=== PATIENT | male | born 1945 ===

== ENCOUNTER 2018-10-10 11:24 | Day surgery (SDC) | payer OTHER, SELFPAY ==
[2018-10-10] VITALS (7 sets, daily range): BP systolic 99–140; BP diastolic 60–83; PULSE 63–75; RESP 8–16; TEMP 36.4–36.8; O2SAT 93–100; BMI 24.0
[2018-10-10] MEDS: SODIUM CHLORIDE 0.9% 1,000 ML 84 ML IV (12:22)
--- NOTE | 2018-10-10 13:21 | PM.HP.1 ---
History of Present Illness Date Patient Seen: 10/10/18 Time Patient Seen: 13:21 Chief complaint: [id number] COLONOSCOPY W/POSS BX Narrative: History of colon polyps Patient History Medical History Anxiety disorder (Acute) Prostatism (Acute) Social History household members: spouse Family & Social History Social History: household members spouse Meds Home Medications Medication Instructions Recorded Confirmed Type Vitamin D3 1,000 units PO DAILY 10/10/18 10/10/18 History citalopram 10 mg PO DAILY 10/10/18 10/10/18 History rosuvastatin 20 mg PO DAILY 10/10/18 10/10/18 History saw palmetto 450 mg PO DAILY 10/10/18 10/10/18 History tamsulosin 0.4 mg PO DAILY 10/10/18 10/10/18 History vitamin B complex 1 tab PO DAILY 10/10/18 10/10/18 History Allergies Allergy/AdvReac Type Severity Reaction Status Date / Time No Known Drug Allergies Allergy Verified 10/10/18 12:15 Exam Vital Signs (past 8 hours): - 10/10/18 11:53 Temperature 97.5 F L Pulse Rate 75 Respiratory Rate 16 Blood Pressure 140/83 Pulse Oximetry 99 Oxygen Delivery Method Room Air Narrative Exam Narrative: Oropharynx free of lesions Chest clear to auscultation percussion Cardiac exam reveals no S3 or murmur Assessment & Plan Assessment & Plan narrative: History of adenomatous colon polyps need for follow-up colonoscopy. Risks, benefits, alternatives have been explained.
--- NOTE | 2018-10-10 13:23 | PM.OP.ENDO ---
Operative Date/Time/Diagnoses Date of procedure: 10/10/18 Time of procedure: 13:23 Pre-op diagnosis: See indication and findings Procedure & Clinicians Study performed: Colonoscopy Same procedure as scheduled: Yes Indications: History of colon polyps Surgeon: Orlando Flowers Procedure Notes Procedure in detail: After informed consent was obtained the patient was placed in the left lateral decubitus position. The video colonoscope was introduced the rectum and slowly advanced cecum. On slow withdrawal mucosa was carefully examined. The scope was removed. The patient tolerated the procedure well. Blood loss none Complications none Sedation Total sedation time 14 min Fentanyl 100 mcg Versed 6 mg IV titration Findings 1. Normal colonoscopy to cecum Patient is to have follow-up colonoscopy in 5 years
[2018-10-10] MEDS: MIDAZOLAM 5 MG/5 ML VIAL IV (13:57)
[2018-10-10] MEDS: fentaNYL 250 MCG/5 ML INJ IV (13:58)
== END 2018-10-10 14:59 | disposition home or self-care (01) ==
PROVIDERS: PCP Internal Medicine; Visit Provider Internal Medicine Gastroenterology
PROC: 0DJD8ZZ Inspection of Lower Intestinal Tract, Via Natural or Artificial Opening Endoscopic (ICD-10-PCS; CPT 45378; principal; 2018-10-10 12:30)
DX: Z86.010 Personal history of colon polyps (principal); F41.9 Anxiety disorder, unspecified; N40.0 Benign prostatic hyperplasia without lower urinary tract symptoms
CPT/HCPCS: G0121; J2250; J3010